=== PATIENT | female | born 1995 | race Two or more races ===

== ENCOUNTER 2023-09-03 19:38 | Emergency (ER) | payer OTHER ==
[~2023-09-03] VITALS: Ht 152.4 cm; Wt 49.3 kg
[2023-09-03] MEDS: ONDANSETRON ODT 4 MG TAB PO ONE (20:02)
[2023-09-03] MEDS: LIDOCAINE VISCOUS 2% 15ML UD PO ONE (20:02)
[2023-09-03] MEDS: DONNATAL 5ml ORAL Elix (BELLADONNA ALK-PHENOBARB) PO ONE (20:02)
[2023-09-03] MEDS: MAALOX PLUS or MAALOX 30 ML PO ONE (20:02)
[2023-09-03 20:21] LABS: Basophils # (auto) 0 10 ^3/uL (0-0.2); Basophils % (auto) 0.5 % (0.0-2.0); Eosinophils # (auto) 0 10 ^3/uL (0-0.8); Eosinophils % (auto) 0.4 % (0.0-7.0); Hematocrit 40.2 % (36.0-46.0); Hemoglobin 13.5 g/dL (12.2-16.2); Lymphocytes # (auto) 2.3 10 ^3/uL (0.4-5.4); Lymphocytes % (auto) 26.3 % (10.0-50.0); Mean Corpuscular Hemoglobin 27.3 pg (28.0-32.0); Mean Corpuscular Hgb Conc. 33.7 g/dL (32.0-36.0); Monocytes # (auto) 0.4 10 ^3/uL (0-1.3); Monocytes % (auto) 4.3 % (0.0-12.0); Neutrophils # (auto) 5.9 10 ^3/uL (1.6-8.6); Neutrophils % (auto) 68.5 % (37.0-80.0); Nucleated Red Blood Cells % 0.1 %; Red Blood Cells 4.96 10^6/uL (4.0-5.20); Red Cell Distribution Width 15.8 % (11.8-14.3); White Blood Cell 8.6 10^3/uL (4.4-10.8)
[2023-09-03 20:38] LABS: Alanine Aminotransferase 12 U/L (7-40); Albumin 4.8 g/dL (3.2-4.8); Alkaline Phosphatase 102 U/L (46-116); Anion Gap 10 (5-15); Aspartate Aminotransferase 21 U/L (13-40); BUN/Creatinine Ratio 18.1 (10.0-20.0); Bilirubin, Total 0.7 mg/dL (0.2-1.0); Blood Urea Nitrogen 13 mg/dL (9-23); Calcium 9.4 mg/dL (8.7-10.4); Carbon Dioxide 26 mmol/L (20-30); Chloride 107 mmol/L (98-107); Glucose 88 mg/dL (74-106); Lipase 32 U/L (12-53); Potassium 4.1 mmol/L (3.5-5.1); Sodium 143 mmol/L (136-145); Total Protein 7.3 g/dL (5.7-8.2)
[2023-09-03 20:39] LABS: Urine Bacteria None Seen /hpf (None Seen)
[2023-09-03 21:15] LABS: Urine Blood 1+ /uL (Negative); Urine Clarity Turbid (Clear); Urine Color Yellow (Yellow); Urine Mucus FEW (None Seen); Urine Protein, UAD 1+ (Negative); Urine Specific Gravity 1.027 (1.001-1.035); Urine Urobilinogen 4 mg/dL (Negative); Urine WBC 20 /hpf (0 - 5)
[2023-09-03] MEDS ORDERED: CEPH500C PO (23:24)
[2023-09-03] MEDS ORDERED: DICY10CA PO (23:24)
[2023-09-03] MEDS ORDERED: ZOFR4T PO (23:24)
[2023-09-04] MEDS: cefTRIAXone SOD 1,000 MG VL IM ONE
[2023-09-04 00:17] VITALS: BP 107/60; PULSE 58; RESP 18; TEMP 98; O2SAT 97
== END 2023-09-04 00:31 | disposition home or self-care (01) ==
LOC: ER 19:38
DX: N39.0 Urinary tract infection, site not specified (principal); R10.2 Pelvic and perineal pain; Z90.49 Acquired absence of other specified parts of digestive tract
CPT/HCPCS: 36415; 80053; 81001; 83690; 84702; 85025; 96372; 99284; J0696; Q0162